=== PATIENT | male | born 1980 | race Caucasian/White ===

== ENCOUNTER 2017-04-13 20:50 | Emergency (ER) | payer BC ==
[~2017-04-13] VITALS: Wt 104.0 kg
[2017-04-13] MEDS ORDERED: HYDROCODONE/APAP (5/325) TAB PO ONE (22:00)
[2017-04-13] MEDS ORDERED: AMOX1TAB10 PO (22:19)
[2017-04-13] MEDS ORDERED: NPH10OT LEFT EAR (22:19)
[2017-04-13] MEDS ORDERED: IBUP-1542 PO (22:20)
--- NOTE | 2017-04-13 22:26 | ERD ---
ER Documentation Chief Complaint Date/Time DATE: 04/13/17 TIME: 22:22 Chief Complaint LEFT EAR PAIN X2DAYS HPI This is a 36-year-old male presents to the ER with left ear pain that occurred 2 days ago. Patient states that left ear pain is stabbing in nature and is severe. He has not had any fevers at home, however has a very low-grade fever at triage. Patient denies any cough or cold symptoms. He denies any drainage from his ear. He does admit to some mild hearing loss however denies tinnitus. ROS 12 point review of systems was done, all negative except per HPI. Medications Home Meds Active Scripts Ibuprofen* (Motrin*) 600 Mg Tab, 600 MG PO Q6, #30 TAB Prov:GLORY TAMEZ 04/13/17 Neomycin/Polymyxin/Hydrocort* (Cortisporin* Otic) 10 Ml Susp, 4 DROP LEFT EAR QID for 7 Days, EA Prov:GLORY TAMEZ 04/13/17 Amoxicillin/Potassium Clav (Amox-Clav 875-125 mg Tablet) 875-125 mg Tab, 1 TAB PO BID for 10 Days, #14 TAB Prov:GLORY TAMEZ 04/13/17 Allergies Allergies: Coded Allergies: No Known Allergy (Unverified , 04/13/17) Physical Exam Vitals Vital Signs Date Time Temp Pulse Resp B/P Pulse Ox O2 Delivery O2 Flow Rate FiO2 04/13/17 20:53 100.0 76 18 152/67 98 Physical Exam GENERAL: The patient is well developed and appropriate for usual state of health , in no apparent distress. HEENT: Atraumatic. Left erythematous ear canal, there is some discharge within the ear canal. Positive tragus tenderness. No mastoid tenderness. CHEST: Clear to auscultation bilaterally. There are no rales, wheezes or rhonchi. HEART: Regular rate and rhythm. No murmurs, clicks, rubs or gallops. NEURO: Alert and oriented. Results 24 hrs Current Medications Medications (Trade) Dose Ordered Sig/Mark Route PRN Reason Start Time Stop Time Status Last Admin Dose Admin Acetaminophen/ Hydrocodone Bitart ([place] (5/325)) 1 tab ONCE ONCE PO 04/13/17 22:00 04/13/17 22:01 DC 04/13/17 21:50 Procedures/MDM This is a 36-year-old male presents to the ER with left ear pain that started 2 days ago. Patient does appear to have external otitis. Suspicion for mastoiditis is low. Patient will be sent home with Augmentin, Cortisporin, ibuprofen. Patient is well-appearing and is nontoxic. He is stable for outpatient follow-up. He is to follow-up with his primary care doctor within 1- 2 days return to ER sooner if symptoms worsen. My medical decision making was shared with the patient, he understands and agrees with plan. Departure Diagnosis: Primary Impression: Otitis externa Condition: Stable Patient Instructions: External Ear Infection (Adult) Additional Instructions: Call your primary care doctor TOMORROW for an appointment during the next 1-2 days.See the doctor sooner or return here if your condition worsens before your appointment time. GLORY TAMEZ Apr 13, 2017 22:26
== END 2017-04-13 22:36 | disposition home or self-care (01) ==
LOC: FTE 20:50
DX: H60.92 Unspecified otitis externa, left ear (principal)
CPT/HCPCS: 99283